=== PATIENT | male | born 1950 | race Caucasian/White ===

== ENCOUNTER 2018-12-28 16:59 | Emergency (ER) | payer OTHER ==
[~2018-12-28] VITALS: Ht 177.8 cm; Wt 77.1 kg
[2018-12-28 17:00] VITALS: BP_SYST 114
--- NOTE | 2018-12-28 17:23 | NUR ---
Patient is awake, alert, and oriented x3. Patient is verbally agressive and repeated saying "Fucking shit!" Patient is complaining of pain all over his body.
--- NOTE | 2018-12-28 17:31 | NUR ---
Patient is screaming, "Gimme some pain killers!"
--- NOTE | 2018-12-28 17:33 | NUR ---
CALL PLACED TO [facility] TO GET REPORT, SPOKE WITH RONALD OF [facility] AND RECEIVED REPORT.
--- NOTE | 2018-12-28 17:35 | NUR ---
ER Dr. Tellez at bedside examining patient.
--- NOTE | 2018-12-28 17:52 | NUR ---
PT REFUSED BLOOD WORK AND CHEST XRAYS, DR WESTON AWARE
--- NOTE | 2018-12-28 19:01 | NUR ---
Spoke with Emily at [facility], , she states their transport will roll picker the patient.
--- NOTE | 2018-12-28 19:43 | NUR ---
Patient and pt hearing care practitioner/transporter given written and verbal discharge instructions and verbalizes understanding. ER MD discussed with patient the results and treatment provided. Patient in stable condition. ID arm band removed. no Rx of given. Patient educated on pain management and to follow up with PMD. Pain Scale . Opportunity for questions provided and answered. Medication side effect fact sheet provided.
[2018-12-28 19:44] VITALS: BP_SYST 116
== END 2018-12-28 19:44 | disposition home or self-care (01) ==
LOC: SED 16:59
DX: R62.7 Adult failure to thrive (principal); F29 Unspecified psychosis not due to a substance or known physiological condition; I10 Essential (primary) hypertension; Z68.24 Body mass index [BMI] 24.0-24.9, adult
CPT/HCPCS: 93005; 99281; 99283